=== PATIENT | male | born 1990 | race African-American/Black ===

== ENCOUNTER 2019-03-24 09:47 | Emergency (ER) | payer SELFPAY ==
--- NOTE | 2019-03-24 10:19 | EDM.PDOC ---
ED HPI GENERAL MEDICAL PROBLEM - General Chief Complaint: Chest Pain Stated Complaint: CHEST PAIN X 3 DAYS Time Seen by Provider: 03/24/19 10:14 Source of Information: Reports: Patient History Limitations: Reports: No Limitations - History of Present Illness INITIAL COMMENTS - FREE TEXT/NARRATIVE: 28-year-old male presents to the ED for assessment of central chest pain radiating up into his neck and throat area intermittently for the last 3 days. He states it is relieved by burping and belching and seems to start in the epigastrium and radiate upwards. Is also been having some right upper posterior chest pain for about 3 months off and on. 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 No chest wall injury. Denies cough or sputum production. No fever or chills. Is occasionally he will cough up some whitish phlegm. Has no history of asthma. Pain Is Intermittently Sharp and Stabbing and radiating upwards into his throat. Some Pain in His Left Shoulder Which Is Referred into the Left Upper Anterior Chest at Times As Well. He's Had This for a Lengthy Period of Time. States he has not been sleeping well. Took a Tylenol PM last night and didn't sleep quite well. Doesn't take Tums or Rolaids and is not really complaining of any heartburn. Occasional alcohol use which does not seem to make things worse. Onset: Gradual Onset Date: 03/21/19 Duration: Day(s): (Intermittent central chest pain), Intermittent ( waxing and waning for the last 3 days), Waxing/Waning Location: Reports: Chest, Radiates to (Central chest and into the left precordium into the throat.) Quality: Reports: Ache ( Neck and anterior throat), Pressure, Sharp, Stabbing Severity: Moderate Improves with: Reports: None Worsens with: Reports: None Context: Denies: Activity, Exercise, Lifting, Sick Contact, Trauma, Other Associated Symptoms: Reports: Chest Pain (Occasional production of whitish sputum), Cough, cough w sputum. 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 03/24/19 [Rx] Past Medical History - Past Health History Medical/Surgical History: Denies Medical/Surgical History Social & Family History - Tobacco Use Smoking Status *Q: Never Smoker - Living Situation & Occupation Occupation: Employed ED ROS GENERAL - Review of Systems Review Of Systems: See Below Constitutional: Reports: Fatigue, Decreased Appetite. Denies: Fever, Chills, Malaise, Weakness, Weight Loss (Not sleeping very well last 3 or 4 days.) HEENT: Reports: No Symptoms Respiratory: Reports: Sputum. Denies: Shortness of Breath, Wheezing, Pleuritic Chest Pain, Cough, Hemoptysis, Other (Case no white sputum production) Cardiovascular: Reports: Chest Pain. Denies: Blood Pressure Problem, Claudication, Dyspnea on Exertion, Edema, Lightheadedness, Orthopnea (Not to his knowledge but blood pressure is elevated at 146 1 weight upon initial assessment. He is mildly anxious.) Endocrine: Reports: No Symptoms (See history of present illness) GI/Abdominal: Reports: Abdominal Pain : Reports: No Symptoms (Some pressure appreciated in the pit of his stomach or epigastrium.) Musculoskeletal: Reports: Back Pain (Right upper back pain off and on for the last 3 months) Skin: Reports: No Symptoms Neurological: Reports: No Symptoms Psychiatric: Reports: No Symptoms Hematologic/Lymphatic: Reports: No Symptoms ED EXAM, GENERAL - Physical Exam Exam: See Below Exam Limited By: No Limitations General Appearance: Alert, WD/WN, No Apparent Distress. No: Anxious, Lethargic , Obtunded Eye Exam: Bilateral Eye: Normal Inspection Throat/Mouth: Normal Inspection, Normal Lips, Normal Oropharynx Head: Atraumatic, Normocephalic Neck: Normal Inspection, Supple, Non-Tender, Full Range of Motion. No: Lymphadenopathy (L), Lymphadenopathy (R) Respiratory/Chest: No Respiratory Distress, Lungs Clear, Normal Breath Sounds, No Accessory Muscle Use, Chest Non-Tender Cardiovascular: Normal Peripheral Pulses, Regular Rate, Rhythm, No Edema, No Gallop, No Murmur, No Rub Peripheral Pulses: 3+: Posterior Tibial (L), Posterior Tibial (R), Dorsalis Pedis (L), Dorsalis Pedis (R) GI/Abdominal: Normal Bowel Sounds, Soft, Non-Tender, No Organomegaly, No Abnormal Bruit, No Mass, Pelvis Stable (Male) Exam: No Hernia Back Exam: Normal Inspection, Full Range of Motion, Other (Mild tenderness over the C7 rib head on the right side.). No: CVA Tenderness (L), CVA Tenderness (R ) (My) Extremities: Normal Inspection ( Incision and very minimal.), Normal Range of Motion, Non-Tender, No Pedal Edema, Normal Capillary Refill Neurological: Alert, Oriented, CN II-XII Intact, Normal Cognition, Normal Gait, No Motor/Sensory Deficits Psychiatric: Normal Affect, Normal Mood Skin Exam: Warm, Dry, Intact, Normal Color, No Rash EKG INTERPRETATION EKG Date: 03/24/19 Time: 10:06 Rhythm: NSR Rate (Beats/Min): 60 [place]: Normal P-Wave: Present QRS: Other (There is an RSR prime wave in V1 and V2 which is a normal variant for his age. Nonspecific Q-wave in aVL.) ST-T: Other (Diffuse early repolarization pattern. Left ventricular hypertrophy pattern normal for his age.) Course - Vital Signs Last Recorded V/S: Last Vital Signs Temp 36.1 C 03/24/19 10:00 Pulse 72 03/24/19 10:00 Resp 16 03/24/19 10:00 BP 146/108 H 03/24/19 10:00 Pulse Ox 98 03/24/19 10:00 - Orders/Labs/Meds Orders: Active Orders 24 hr Category Date Time Status EKG 12 Lead [EKG Documentation Completion] [RC] STAT Care 03/24/19 10:11 Active EKG Documentation Completion [RC] STAT Care 03/24/19 10:20 Active Chest 2V [CR] Stat Exams 03/24/19 10:14 Taken Famotidine [Pepcid] Med 03/24/19 11:38 Once 20 mg PO ONETIME ONE Labs: Laboratory Tests 03/24/19 03/24/19 Range/Units 10:35 10:35 WBC 3.30 L (4.23-9.07) K/mm3 RBC 5.61 (4.63-6.08) M/mm3 Hgb 15.0 (13.7-17.5) gm/L Hct 45.4 (40.1-51.0) % MCV 80.9 (79.0-92.2) fl MCH 26.7 (25.7-32.2) pg MCHC 33.0 (32.2-35.5) g/dl RDW Std Deviation 39.2 (35.1-43.9) fL Plt Count 255 (163-337) K/mm3 MPV 9.9 (9.4-12.3) fl Neut % (Auto) 37.3 (34.0-67.9) % Lymph % (Auto) 49.4 (21.8-53.1) % [place] % (Auto) 10.9 (5.3-12.2) % Eos % (Auto) 2.1 (0.8-7.0) Baso % (Auto) 0.3 (0.1-1.2) % Neut # (Auto) 1.23 L (1.78-5.38) K/mm3 Lymph # (Auto) 1.63 (1.32-3.57) K/mm3 [place] # (Auto) 0.36 (0.30-0.82) K/mm3 Eos # (Auto) 0.07 (0.04-0.54) K/mm3 Baso # (Auto) 0.01 (0.01-0.08) K/mm3 Sodium 144 (136-145) mEq/L Potassium 4.0 (3.5-5.1) mEq/L Chloride 107 (98-107) mEq/L Carbon Dioxide 29 (21-32) mEq/L Anion Gap 12.0 (5-15) BUN 17 (7-18) mg/dL Creatinine 1.0 (0.7-1.3) mg/dL Est Cr Clr Drug Dosing 105.84 mL/min Estimated GFR (MDRD) > 60 (>60) mL/min BUN/Creatinine Ratio 17.0 (14-18) Glucose 86 (74-106) mg/dL Calcium 8.7 (8.5-10.1) mg/dL Total Bilirubin 0.4 (0.2-1.0) mg/dL AST 13 L (15-37) U/L ALT 18 (16-63) U/L Alkaline Phosphatase 86 (46-116) U/L Troponin I < 0.017 (0.00-0.056) ng/mL C-Reactive Protein < 0.2 (<1.0) mg/dL Total Protein 7.5 (6.4-8.2) g/dl Albumin 3.7 (3.4-5.0) g/dl Globulin 3.8 gm/dL Albumin/Globulin Ratio 1.0 (1-2) Meds: Medications Discontinued Medications Generic Name Dose Route Start Last Admin Trade Name Freq PRN Reason Stop Dose Admin Al Hydroxide/Mg Hydroxide 30 0 ml 03/24/19 10:28 03/24/19 10:42 ml/ Lidocaine HCl 15 ml PO 03/24/19 10:29 45 ml ONETIME ONE Administration - Radiology Interpretation Free Text/Narrative:: 28-year-old male presents to the ED with a three-day history of intermittent central chest pain discomfort. Not elicit any chest wall pain. Heart is normal in sound. Lungs are clear. ECG shows abnormalities in the anterior lateral leads with RSR prime wave suspect no definitive ischemic changes. Plan : Two- view chest x-ray to be done. Routine labs. He is still having some discomfort in his upper neck more of the sternal notch. Will try a GI cocktail. - Re-Assessments/Exams Free Text/Narrative Re-Assessment/Exam: 03/24/19 11:29 Labs reveal a normal white count at 3.30 in fact suggests a viral infection. Differential is 37% neutrophils and 50% lymphocytes or right- sided shift. Hemoglobin is 15.0 with hematocrit of 45.4. Platelet count 255, 000. Sodium 144 with a potassium of 4.0. Chloride 107 with a bicarbonate of 29. Anion gap is 12.0. BUNs 17 with a creatinine of 1.0. GFR is greater than 60. Glucose is 86 calcium is 8.7 bilirubin is 0.4 liver function otherwise normal troponin I is less than 0.017. C-reactive protein less than 0.2. Two-view chest x-ray reveals hyperinflated lung [place] with no infiltrates evident. Cardiac silhouette is normal. 03/24/19 11:38 patient reports that is pain it and throat discomfort is gone completely after GI cocktail. The rest of his examination and labs are normal. No evidence of heart related illness as clean clinically suspected. I suspect that his chest pain is GI in origin from esophagitis likely refluxing during the night. Going to give him Pepcid 20 mg now and then have him start Prilosec 20 mg every bedtime for the next 6 weeks. Patient reassured about and no evidence of cardiac related illness. Departure - Departure Time of Disposition: 11:39 Disposition: Home, Self-Care 01 Condition: Fair Clinical Impression: Non-cardiac chest pain, Esophagitis Prescriptions: Omeprazole Magnesium [Prilosec Otc] 20 mg PO DAILY #42 tablet. Referrals: PCP,None [Primary Care Provider] - Forms: ED Department Discharge Additional Instructions: Evaluation the emergency room this morning in regards to development of central chest discomfort rating up into the neck and throat and starting in the pit of the stomach for the last 3 days. Symptoms of been coming and going. Duration of the chest and lungs and abdomen is negative for any positive findings. Particularly no chest wall pain. Heart tracing is within normal limits. Two- view chest x-ray was also found to be normal. Labs reveal a slightly low white count suggesting a viral infection. The viral inflammation of the stomach and food pipe to cause current send pain syndrome. Suspect that you are refluxing during the night and have a low-grade esophagitis causing referred pain up into the chest and throat. You're given Pepcid 20 mg in the ED. Suggest purchasing Prilosec 20 mg tablets. These are [id number] at [facility]. 1 tablet every night at bedtime including tonight for the next 6 weeks to help heal the esophagus. All activities as before. There is no evidence of any heart related illness. - My Orders Last 24 Hours: My Active Orders 03/24/19 10:11 EKG 12 Lead [EKG Documentation Completion] [RC] STAT 03/24/19 10:14 Chest 2V [CR] Stat 03/24/19 10:20 EKG Documentation Completion [RC] STAT 03/24/19 11:38 Famotidine [Pepcid] 20 mg PO ONETIME ONE - Assessment/Plan Last 24 Hours: My Active Orders 03/24/19 10:11 EKG 12 Lead [EKG Documentation Completion] [RC] STAT 03/24/19 10:14 Chest 2V [CR] Stat 03/24/19 10:20 EKG Documentation Completion [RC] STAT 03/24/19 11:38 Famotidine [Pepcid] 20 mg PO ONETIME ONE
[2019-03-24] MEDS ORDERED: Alum Hydrox/Mag Hydrox/Simeth 30 ML, Lidocaine 2% 15 ML PO ONE ×2 (10:28)
[2019-03-24] MEDS ORDERED: Famotidine 20 MG Tab PO ONE (11:38)
--- NOTE | 2019-03-24 14:15 | CR ---
Chest: Two views of the chest were obtained. Comparison: No prior chest x-ray. Heart size and mediastinum are normal. Lungs are clear. Bony structures are unremarkable. Impression: 1. Nothing acute is seen on two-view chest x-ray. Diagnostic code #1
== END 2019-03-24 11:55 | disposition home or self-care (01) ==
LOC: JD.ED 09:47
DX: K20.9 Esophagitis, unspecified (principal)
CPT/HCPCS: 36415; 71046; 80053; 84484; 85025; 86140; 93005; 99285; A9270; 93010; 99284